=== PATIENT | male | born 1930 | race Caucasian/White ===

== ENCOUNTER 2019-05-04 18:59 | Emergency (ER) | payer MEDICARE, OTHER ==
[2019-05-04] MEDS ORDERED: Sodium Chloride 0.9% 10 ML Syringe FLUSH PRN (19:18)
--- NOTE | 2019-05-04 19:47 | EDM.PDOC ---
ED HPI GENERAL MEDICAL PROBLEM - General Chief Complaint: Chest Pain Stated Complaint: CHEST PAIN Time Seen by Provider: 05/04/19 19:17 Source of Information: Reports: Patient, RN Notes Reviewed - History of Present Illness INITIAL COMMENTS - FREE TEXT/NARRATIVE: 89[place] has been brought here by staff member after experiencing 10-15 minute episode of chest pain about an hour ago. Because of his dementia he does not remember this. The discomfort apparently did resolve while in route to the ED. At this time he has no chest or abdominal pain. He is not short of breath. 2 of not been recently ill with cough fever or other prior unusual symptomatology. Other than his dementia he is very healthy for age with no known history for heart disease, hypertension diabetes or other major medical problems. Headache Pain Score (Numeric/FACES): 4 - Related Data Allergies Allergy/AdvReac Type Severity Reaction Status Date / Time No Known Allergies Allergy Verified 05/04/19 19:11 Home Meds: Home Meds Calcium Carbonate [Calcium] 500 mg PO DAILY 05/04/19 [History] Cyanocobalamin (Vitamin B12) [Vitamin B12] 1,000 mcg PO DAILY 05/04/19 [History] Donepezil HCl 10 mg PO BEDTIME 05/04/19 [History] Memantine [Namenda] 10 mg PO BID 05/04/19 [History] Multivitamin [Multivitamins] 1 tab PO DAILY 05/04/19 [History] Nystatin 1 applic TOP BID PRN 05/04/19 [History] Propylene Glycol/PEG 400/Pf [Systane 0.3-0.4% Eye Drop] 1 drop EYEBOTH QID 05/04 [History] Simvastatin [Zocor] 40 mg PO DAILY 05/04/19 [History] Past Medical History HEENT History: Reports: Cataract Cardiovascular History: Reports: High Cholesterol Gastrointestinal History: Reports: GERD Musculoskeletal History: Reports: Other (See Below) Other Musculoskeletal History: left dorsiflexion weakness, neuromuscular disorder Neurological History: Reports: Alzheimers Disease Psychiatric History: Reports: Dementia - Past Surgical History Musculoskeletal Surgical History: Reports: Knee Replacement Social & Family History - Tobacco Use Smoking Status *Q: Unknown Ever Smoked - Caffeine Use Caffeine Use: Reports: None - Recreational Drug Use Recreational Drug Use: No ED ROS GENERAL - Review of Systems Review Of Systems: See Below Constitutional: Denies: Fever, Chills, Diaphoresis HEENT: Reports: No Symptoms Respiratory: Denies: Shortness of Breath, Pleuritic Chest Pain Cardiovascular: Reports: Chest Pain GI/Abdominal: Denies: Abdominal Pain (Gone), Nausea, Vomiting Musculoskeletal: Denies: Shoulder Pain, Arm Pain, Back Pain Skin: Reports: No Symptoms Neurological: Reports: No Symptoms ED EXAM, GENERAL - Physical Exam Exam: See Below General Appearance: Alert, No Apparent Distress Throat/Mouth: Normal Inspection Head: Atraumatic. No: Facial Swelling Neck: Supple, Other Respiratory/Chest: No Respiratory Distress, Lungs Clear (No JVD), Normal Breath Sounds Cardiovascular: Regular Rate, Rhythm GI/Abdominal: Soft, Non-Tender Extremities: Normal Inspection, Normal Range of Motion. No: Leg Pain, Increased Warmth, Redness Neurological: Alert, Other (Short-term memory loss but does attempt to answer simple questions and does follow simple commands) Skin Exam: Warm, Dry, Normal Color EKG INTERPRETATION EKG Date: 05/04/19 Rhythm: NSR P-Wave: Present QRS: Other (There are Q waves leads III) ST-T: Other (T inversion in lead III, no st elevation or depression) Course - Vital Signs Last Recorded V/S: Last Vital Signs Temp 97.6 F 05/04/19 19:06 Pulse 59 L 05/04/19 19:06 Resp 18 05/04/19 19:06 BP 194/82 H 05/04/19 19:06 Pulse Ox 97 05/04/19 19:06 - Orders/Labs/Meds Orders: Active Orders 24 hr Category Date Time Status EKG 12 Lead [EKG Documentation Completion] [RC] STAT Care 05/04/19 19:18 Active Peripheral IV Care [RC] . DIRECTED Care 05/04/19 19:18 Active Peripheral IV Insertion Adult [OM.PC] Stat Oth 05/04/19 19:18 Ordered Labs: Laboratory Tests 05/04/19 05/04/19 Range/Units 19:08 19:08 WBC 6.61 (4.23-9.07) K/mm3 RBC 5.21 (4.63-6.08) M/mm3 Hgb 16.4 (13.7-17.5) gm/dl Hct 49.3 (40.1-51.0) % MCV 94.6 H (79.0-92.2) fl MCH 31.5 (25.7-32.2) pg MCHC 33.3 (32.2-35.5) g/dl RDW Std Deviation 44.9 H (35.1-43.9) fL Plt Count 216 (163-337) K/mm3 MPV 9.3 L (9.4-12.3) fl Neut % (Auto) 65.5 (34.0-67.9) % Lymph % (Auto) 22.4 (21.8-53.1) % Harnett % (Auto) 10.3 (5.3-12.2) % Eos % (Auto) 1.2 (0.8-7.0) Baso % (Auto) 0.3 (0.1-1.2) % Neut # (Auto) 4.33 (1.78-5.38) K/mm3 Lymph # (Auto) 1.48 (1.32-3.57) K/mm3 [place]ett # (Auto) 0.68 (0.30-0.82) K/mm3 Eos # (Auto) 0.08 (0.04-0.54) K/mm3 Baso # (Auto) 0.02 (0.01-0.08) K/mm3 Sodium 140 (136-145) mEq/L Potassium 4.2 (3.5-5.1) mEq/L Chloride 103 (98-107) mEq/L Carbon Dioxide 28 (21-32) mEq/L Anion Gap 13.2 (5-15) BUN 15 (7-18) mg/dL Creatinine 1.1 (0.7-1.3) mg/dL Est Cr Clr Drug Dosing TNP Estimated GFR (MDRD) > 60 (>60) mL/min BUN/Creatinine Ratio 13.6 L (14-18) Glucose 102 (83-115) mg/dL Calcium 9.1 (8.5-10.1) mg/dL Total Bilirubin 1.0 (0.2-1.0) mg/dL AST 21 (15-37) U/L ALT 36 (16-63) U/L Alkaline Phosphatase 112 (46-116) U/L Troponin I < 0.017 (0.00-0.056) ng/mL Total Protein 7.7 (6.4-8.2) g/dl Albumin 3.9 (3.4-5.0) g/dl Globulin 3.8 gm/dL Albumin/Globulin Ratio 1.0 (1-2) Meds: Medications Discontinued Medications Generic Name Dose Route Start Last Admin Trade Name Polly PRN Reason Stop Dose Admin Acetaminophen 975 mg 05/04/19 20:45 05/04/19 20:51 Tylenol PO 05/04/19 20:46 975 mg NOW ONE Administration Sodium Chloride 10 ml 05/04/19 19:18 05/04/19 19:35 Saline Flush FLUSH 10 ml ASDIRECTED PRN Administration Keep Vein Open - Re-Assessments/Exams Free Text/Narrative Re-Assessment/Exam: 05/05/19 00:46 EKG did not show acute changes, troponins came back normal chest x-ray looks good patient did not exhibit any sign of distress while here in the ED, sinus rhythm without ectopy. Discharge instructions as documented. Departure - Departure Time of Disposition: 20:56 Disposition: Home, Self-Care 01 Condition: Fair Clinical Impression: Atypical chest pain Instructions: Nonspecific Chest Pain, [id number] Referrals: Ho Díaz MD [Primary Care Provider] - Forms: ED Department Discharge Additional Instructions: A dose of Tylenol 975 mg oral has been given here in the ED, heart and lungs checked out well this evening. Continue current medications. Follow up clinic as needed. Return to ED as needed if symptoms worsening in any way Sepsis Event Note - Evaluation Sepsis Screening Result: No Definite Risk - Focused Exam Vital Signs: Vital Signs Temp Pulse Resp BP Pulse Ox 05/04/19 19:06 97.6 F 59 L 18 194/82 H 97 Date Exam was Performed: 05/05/19 Time Exam was Performed: 00:46 - My Orders Last 24 Hours: My Active Orders 05/04/19 19:18 EKG 12 Lead [EKG Documentation Completion] [RC] STAT Peripheral IV Care [RC] . DIRECTED Peripheral IV Insertion Adult [OM.PC] Stat - Assessment/Plan Last 24 Hours: My Active Orders 05/04/19 19:18 EKG 12 Lead [EKG Documentation Completion] [RC] STAT Peripheral IV Care [RC] . DIRECTED Peripheral IV Insertion Adult [OM.PC] Stat
--- NOTE | 2019-05-04 19:51 | CR ---
Chest: Portable view of the chest was obtained. Comparison: No prior chest imaging is available. Heart has a slight left ventricular configuration. Tortuous thoracic aorta is seen. Lungs are clear with no acute parenchymal change. Previous lumbar spine surgery is noted. Impression: 1. Findings as noted above. 2. Nothing acute is appreciated on portable chest x-ray. Diagnostic code #2 This report was dictated in [place] Standard Time
[2019-05-04] MEDS ORDERED: Acetaminophen 325 MG Tab PO ONE (20:45)
== END 2019-05-04 21:03 | disposition home or self-care (01) ==
LOC: JD.ED 18:59
DX: R07.89 Other chest pain (principal); G30.9 Alzheimer's disease, unspecified; F02.80 Dementia in other diseases classified elsewhere, unspecified severity, without behavioral disturbance, psychotic disturbance, mood disturbance, and anxiety
CPT/HCPCS: 36415; 71045; 80053; 84484; 85025; 93005; 99285; A9270; 93010; 99283